=== PATIENT | female | born 1985 | race Caucasian/White ===

== ENCOUNTER 2019-05-13 16:13 | Inpatient (IN) | payer MEDICAID, SELFPAY ==
[2019-05-13] MEDS ORDERED: Ondansetron PF 4 MG/2 ML Vial IVP PRN (18:12)
[2019-05-13] MEDS ORDERED: HYDROcodone/Acetaminophen 5/325 mg Tablet PO PRN ×2 (18:12)
[2019-05-13 18:20] VITALS: BMI 32.1
[2019-05-13] MEDS: Acetaminophen 325 MG TAB PO PRN (19:31)
[2019-05-13] MEDS: Sodium Chloride 0.9% 1,000 ML IV SCH (19:31)
[2019-05-13] MEDS: Famotidine 20 MG TAB PO SCH (20:38)
[2019-05-13] MEDS: Phenergan/Codeine 10-6.25mg/5ml UDCUP PO PRN (20:38)
[2019-05-13] MEDS ORDERED: Cefepime 2 GM in Sodium Chloride 0.9% 100 ML IVPB SCH (21:00)
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
[2019-05-14 04:47] LABS: Anion Gap 11 mmol/L (10-20); BUN (Urea Nitrogen) 9 mg/dL (7.0-18.7); Calc. Creatinine Clearance 174 mL/min (70-130); Calcium 8.8 mg/dL (7.8-10.44); Carbon Dioxide 25 mmol/L (22-29); Chloride 108 mmol/L (98-107); Estimated GFR-MDRD 88; Glucose 92 mg/dL (70-105); Potassium 4.1 mmol/L (3.5-5.1); Sodium 140 mmol/L (136-145)
[2019-05-14] MEDS ORDERED: Potassium Chloride 20 MEQ TAB PO SCH (05:30)
[2019-05-14] MEDS: Sodium Chloride 0.9% 1,000 ML IV SCH ×3 (05:32→20:18)
[2019-05-14] MEDS: Phenergan/Codeine 10-6.25mg/5ml UDCUP PO PRN (05:34)
[2019-05-14 05:45] LABS: Band 13 % (5-11); Hemoglobin 10.8 g/dL (12.0-16.0); Lymphocytes 25 % (21-51); MDiff Complete? YES; Mean Corpuscular HGB CONC 32.4 g/dL (32.0-36.0); Mean Corpuscular Hemoglobin 29.1 pg (27.0-31.0); Mean Corpuscular Volume 89.7 fL (78.0-98.0); Monocytes 15 % (0-10); Neutrophil 47 % (42-75); Platelet Count 168 thou/uL (130-400); RBC Distribution Width 11.8 % (11.5-14.5); Red Blood Cell (RBC) Count 3.73 mill/uL (4.20-5.40); White Blood Cell (WBC) Count 6.1 thou/uL (4.8-10.8)
[2019-05-14] MEDS: Famotidine 20 MG TAB PO SCH ×2 (08:40→20:16)
[2019-05-14] MEDS: Azithromycin 500 MG in Sodium Chloride 0.9% 250 ML 250 ML IVPB SCH (08:40)
--- NOTE | 2019-05-14 09:05 | PDOC.PN ---
- Subjective Encounter Start Date: 05/14/19 Encounter Start Time: 09:03 Patient sitting up in bed, she denies chest pain, palpitations. She reports cough and mild shortness of breath unchanged. She is also experiencing some subjective mild fever and chills throughout the day along with headache without dizziness. So far fever has not been above 99 today. - Objective Resuscitation Status - Order Detail: 05/13/19 18:55 Resuscitation Status Routine Co-Sign Provider: Resuscitation Status: FULL: Full Resuscitation MAR Reviewed: Yes Vital Signs & Weight: Vital Signs (12 hours) Temp Pulse Resp BP Pulse Ox 05/14/19 07:51 99 F 99 18 108/64 94 L 05/14/19 06:50 111 H 18 97 05/14/19 04:11 98.8 F 95 18 106/62 95 05/14/19 02:04 20 05/13/19 23:48 99.2 F 95 20 115/59 L 96 05/13/19 21:40 97 18 97 Weight Weight 230 lb 6 oz I&O: 05/13/19 05/14/19 05/15/19 06:59 06:59 06:59 Intake Total 1001 Balance 1001 Result Diagrams: 05/14/19 04:06 05/14/19 04:06 Radiology Reviewed by me: Yes Phys Exam - Physical Examination Constitutional: NAD HEENT: PERRLA, moist MMs, oral pharynx no lesions Neck: no nodes, full ROM Respiratory: no wheezing, clear to auscultation bilateral Cardiovascular: RRR, no significant murmur, no rub Gastrointestinal: soft, no distention, positive bowel sounds Musculoskeletal: no edema, pulses present Neurological: non-focal, moves all 4 limbs Lymphatic: no nodes Psychiatric: normal affect, A&O x 3 Skin: no rash, cap refill <2 seconds Dx/Plan (1) Community acquired pneumonia Code(s): J18.9 - PNEUMONIA, UNSPECIFIED ORGANISM Status: Acute - Plan cont current plan of care, continue antibiotics * Continue IV abx including azithromycin and ceftriaxone * Await cultures * Continue Tylenol for fevers * Continue symptomatic management with duonebs * If she remains afebrile for 24 hours will likely be transitioned to oral abx and discharged home
[2019-05-14] MEDS ORDERED: Ketorolac Tromethamine 30 MG/ML VIAL IVP PRN (09:08)
[2019-05-14] MEDS: cefTRIAXone\\ROCEPHIN 1 GM in Sodium Chloride 0.9% 100 ML IVPB SCH (11:41)
[2019-05-14] MEDS: Ondansetron ODT 4 MG TAB SL PRN (14:54)
[2019-05-14] MEDS: Aspirin/APAP/Caffeine Tab (Excedrin Migraine) PO PRN (15:39)
[2019-05-14] MEDS: Acetaminophen 325 MG TAB PO PRN (15:39)
[2019-05-15] MEDS: Acetaminophen 325 MG TAB PO PRN ×2 (00:59→20:37)
[2019-05-15] MEDS: Ondansetron ODT 4 MG TAB SL PRN (00:59)
[2019-05-15] MEDS: Sodium Chloride 0.9% 1,000 ML IV SCH ×3 (04:40→20:39)
[2019-05-15] MEDS: Famotidine 20 MG TAB PO SCH ×2 (08:56→20:37)
[2019-05-15] MEDS: Aspirin/APAP/Caffeine Tab (Excedrin Migraine) PO PRN (09:02)
[2019-05-15] MEDS: Azithromycin 500 MG in Sodium Chloride 0.9% 250 ML 250 ML IVPB SCH ×2 (09:03→10:37)
[2019-05-15] MEDS: cefTRIAXone\\ROCEPHIN 1 GM in Sodium Chloride 0.9% 100 ML IVPB SCH (09:03)
[2019-05-15 09:38] LABS: Anion Gap 12 mmol/L (10-20); BUN (Urea Nitrogen) 5 mg/dL (7.0-18.7); Calc. Creatinine Clearance 182 mL/min (70-130); Calcium 8.8 mg/dL (7.8-10.44); Carbon Dioxide 21 mmol/L (22-29); Chloride 110 mmol/L (98-107); Estimated GFR-MDRD Greater than 90; Glucose 117 mg/dL (70-105); Potassium 3.9 mmol/L (3.5-5.1); Sodium 139 mmol/L (136-145)
[2019-05-15 09:44] LABS: Hemoglobin 10.8 g/dL (12.0-16.0); Mean Corpuscular HGB CONC 31.9 g/dL (32.0-36.0); Mean Corpuscular Hemoglobin 28.6 pg (27.0-31.0); Mean Corpuscular Volume 89.5 fL (78.0-98.0); Mean Platelet Volume 6.7 fL (7.4-10.4); Platelet Count 216 thou/uL (130-400); RBC Distribution Width 11.9 % (11.5-14.5); Red Blood Cell (RBC) Count 3.79 mill/uL (4.20-5.40); White Blood Cell (WBC) Count 6.4 thou/uL (4.8-10.8)
--- NOTE | 2019-05-15 10:45 | RAD ---
PA AND LATERAL CHEST: HISTORY: Pneumonia. FINDINGS: The heart size is normal. There is consolidation in the right middle lobe. No pneumothoraces or lar ge effusions are seen IMPRESSION: Right middle lobe pneumonia. POS: TPC
[2019-05-15] MEDS ORDERED: cefTRIAXone\\ROCEPHIN 2 GM in Sodium Chloride 0.9% 100 ML IVPB SCH (11:00)
[2019-05-15 11:39] LABS: Band 18 % (5-11); Eosinophils 2 % (0-10); Lymphocytes 24 % (21-51); MDiff Complete? YES; Metamyelocyte 1 % (0-0); Monocytes 13 % (0-10); Neutrophil 41 % (42-75); Platelet Morphology Comment Appears Adequate; RBC Morphology 1; Reactive Lymphocytes 1 % (0-10)
--- NOTE | 2019-05-15 13:05 | PDOC.HOSPP ---
- Subjective Subjective: Patient sitting up in bed and reports worsening shortness of breath, and cough today. She continues to have intermittent fevers as high as 102 last night. She denies chest pain or palpitations - Objective Vital Signs & Weight: Vital Signs (12 hours) Temp Pulse Resp BP Pulse Ox 05/15/19 12:00 100.2 F H 108 H 15 115/72 97 05/15/19 10:58 80 18 100 05/15/19 07:55 99.5 F 111 H 22 H 128/84 94 L 05/15/19 06:59 97 20 95 05/15/19 04:37 99.1 F 99 16 137/78 94 L 05/15/19 02:16 80 16 93 L Weight Admit Weight 230 lb 6 oz Weight 234 lb 11.2 oz I&O: 05/14/19 05/15/19 05/16/19 06:59 06:59 06:59 Intake Total 1001 2850 Balance 1001 2850 Result Diagrams: 05/15/19 09:07 05/15/19 09:07 Radiology Reviewed by me: Yes EKG Reviewed by me: Yes ROS - Review of Systems All systems: All other ROS were reviewed and found negative. Constitutional: reports: fever, chills Respiratory: reports: cough, shortness of breath, SOB with excertion, sputum Cardiovascular: denies: chest pain, palpitations, orthopnea, paroxysmal noc. dyspnea, edema, light headedness Gastrointestinal: denies: nausea, vomitting, abdominal pain Genitourinary: denies: dysuria, frequency Musculoskeletal: denies: neck pain, shoulder pain, arm pain, back pain, leg pain Skin: denies: rash, lesions Neurological: denies: weakness, numbness, incoordination, confusion - Medication Medications: Active Medications Generic Name Dose Route Start Last Admin Trade Name Freq PRN Reason Stop Dose Admin Acetaminophen 650 mg 05/13/19 18:12 05/15/19 00:59 Tylenol PO 650 mg Q4H PRN Administration Headache/Fever or Pain Acetaminophen/Aspirin/Caffeine 1 tab 05/14/19 12:20 05/15/19 09:02 Excedrin Migraine PO 1 tab Q6H PRN Administration Headache Hydrocodone Bitart/Acetaminophen 1 tab 05/13/19 18:12 05/14/19 05:32 [place] 5/325 PO 1 tab Q6H PRN Administration Mild-Moderate Pain (1-5) Albuterol/Ipratropium 3 ml 05/13/19 18:30 05/15/19 10:58 Duoneb NEB 3 ml [id number] MEIR Administration Famotidine 20 mg 05/13/19 21:00 05/15/19 08:56 Pepcid PO 20 mg BID MEIR Administration Sodium Chloride 1,000 mls @ 100 mls/hr 05/13/19 18:12 05/15/19 04:40 Normal Saline 0.9% IV 1,000 mls .Q10H MEIR Administration Levofloxacin 750 mg/ Device 150 mls @ 100 mls/hr 05/15/19 12:00 05/15/19 11: 25 IVPB 150 mls 1200 MEIR Administration Ketorolac Tromethamine 15 mg 05/14/19 09:08 05/14/19 09:57 Toradol IVP 05/19/19 09:09 15 mg Q6H PRN Administration Pain Ondansetron HCl 4 mg 05/13/19 18:12 05/13/19 19:31 Zofran IVP 4 mg Q6H PRN Administration Nausea/Vomiting Ondansetron HCl 4 mg 05/13/19 18:12 05/15/19 00:59 Zofran Odt SL 4 mg Q6H PRN Administration Nausea/Vomiting Promethazine HCl/Codeine 5 ml 05/13/19 19:47 05/14/19 05:34 Phenergan/Codeine Syrup PO 5 ml Q4H PRN Administration Cough - Exam NAD, awake alert Eye: PERRL, anicteric sclera ENT: normocephalic atraumatic, no oropharyngeal lesions, moist mucosa Neck: supple, no JVD Heart: RRR, no murmur, no gallops, normal peripheral pulses Respiratory: normal chest expansion, rales Gastrointestinal: soft, non-tender, non-distended Extremities: no cyanosis, no clubbing, no edema Skin: normal turgor, no rashes Neurological: CN's grossly intact, normal sensation to touch Musculoskeletal: normal tone, normal strength Psychiatric: normal affect, A&O x 3 Hosp A/P (1) Community acquired pneumonia Code(s): J18.9 - PNEUMONIA, UNSPECIFIED ORGANISM Status: Acute - Plan old records reviewed/req, continue antibiotics, respiratory therapy Continue abx she will be tx with IX ceftriaxone and levaquin Obtain repeat blood cultures Continue duonebs and respiratory therapy Convert to inpatient due to continued fevers Chest xray consistent with right middle lobe pneumonia
[2019-05-15] MEDS: cefTRIAXone\\ROCEPHIN 2 GM in Sodium Chloride 0.9% 100 ML IVPB SCH (13:14)
[2019-05-15] MEDS: Phenergan/Codeine 10-6.25mg/5ml UDCUP PO PRN (20:38)
[2019-05-16] MEDS: Famotidine 20 MG TAB PO SCH (08:08)
[2019-05-16] MEDS: Aspirin/APAP/Caffeine Tab (Excedrin Migraine) PO PRN (09:42)
--- NOTE | 2019-05-16 11:05 | DIS ---
DATE OF ADMISSION: 05/13/2019 DATE OF DISCHARGE: 05/16/2019 TRANSFER OF CARE PRIMARY CARE PHYSICIAN: No PCP. DISPOSITION: Discharged home. FINAL DIAGNOSES: Right middle lobe pneumonia. DISCHARGE MEDICATION: Levaquin 750 mg p.o.daily for 7 days. DIET: As tolerated. CODE STATUS: Full. PENDING AT TIME OF DISCHARGE: Her blood cultures are negative to date. HOSPITAL COURSE: The patient post treatment for upper respiratory tract infection with Zithromax, presently was found to have a right middle lobe pneumonia. She was short of breath. Her white count was normal, but she had bandemia. She was treated with IV Rocephin and Levaquin. She is currently afebrile, desirous of going home. She is being discharged on Levaquin 750 mg p.o. daily for 7 days. Chest x-ray revealed a right middle lobe pneumonia. She has been told she needs followup with PCP in 7 days. She will need radiological followup until her infiltrate has cleared. Currently, she has faint rales over the right middle lobe. The remainder of her chest is clear with no wheezes. Vital signs are stable. She is afebrile. Job ID: [id number] [facility]
[2019-05-16] MEDS: cefTRIAXone\\ROCEPHIN 2 GM in Sodium Chloride 0.9% 100 ML IVPB SCH (11:16)
[2019-05-16 14:01] VITALS: BP 121/87; TEMP 98
== END 2019-05-16 14:14 | disposition home or self-care (01) | DRG 195 ==
LOC: ERS 16:13 → OBSVTOIN 17:07 → 2SW 17:07 → T4-B 05-15 16:08
PROVIDERS: ADMIT Internal Medicine; ATTEND Internal Medicine
DX: J18.1 Lobar pneumonia, unspecified organism (principal); F41.9 Anxiety disorder, unspecified; F32.9 Major depressive disorder, single episode, unspecified; D72.825 Bandemia
CPT/HCPCS: 36415; 71046; 80048; 85025; 87040; 94640; 96365; J0456; J0692; J0696; J1885; J1956; J2405; J3490; J7050; J7620; Q0162